=== PATIENT | female | born 1990 | race American Indian/Alaskan Native ===

== ENCOUNTER 2018-09-23 12:50 | Inpatient (IN) | payer OTHER ==
[2018-09-23 13:57] LABS: Basophils % (Auto) 0.4 % (0.0-1.8); Eosinophils % (Auto) 0.6 % (0.0-4.3); Hematocrit 33.8 % (30.3-42.9); Hemoglobin 10.5 gm/dl (10.1-14.3); Lymphocytes # (Auto) 1.2 K/mm3 (1.2-5.4); Lymphocytes % (Auto) 18.6 % (13.4-35.0); Mean Corpuscular HGB Conc 31 % (30-34); Mean Corpuscular Volume 73 fl (79-97); Monocytes # (Auto) 0.7 K/mm3 (0.0-0.8); Monocytes % (Auto) 11.1 % (0.0-7.3); Platelet Count 215 K/mm3 (140-440); Red Blood Count 4.63 M/mm3 (3.65-5.03); Red Cell Distribution Width 14.1 % (13.2-15.2)
[2018-09-23 14:14] LABS: Uric Acid 2.9 mg/dL (3.5-7.6)
[2018-09-23 14:14] LABS: Bilirubin,Urine NEG (Negative); Blood,Urine MOD (Negative); Color,Urine Yellow (Yellow); Mucus,Urine 2+ /HPF; Protein,Urine <15 mg/dL mg/dL (Negative)
[2018-09-23] MEDS ORDERED: AMPICILLIN/NS 2 GM/100 ML 2 GM/100 ML BAG IV ONE (14:49)
[2018-09-23] MEDS ORDERED: BRETHINE IVP PRN (14:49)
[2018-09-23] MEDS ORDERED: BRETHINE SUB-Q PRN (14:49)
[2018-09-23] MEDS ORDERED: XYLOCAINE 2% INFILTRATI ONE (14:49)
[2018-09-23] MEDS ORDERED: STADOL IV PRN (14:49)
[2018-09-23] MEDS ORDERED: SUBLIMAZE IV PRN (14:49)
[2018-09-23] MEDS ORDERED: ZOFRAN IV PRN ×2 (14:49→17:49)
[2018-09-23] MEDS ORDERED: MINERAL OIL PO PRN (14:49)
[2018-09-23] MEDS ORDERED: PITOCin/NS 20 UNIT/1000ML DRIP 20 UNITS/1,000 ML BAG IV SCH ×2 (15:00→18:00)
[2018-09-23] MEDS ORDERED: LACTATED RINGERS 1,000 ML IV SCH (15:00)
[2018-09-23] MEDS ORDERED: PITOCin/NS 30 UNIT/500ML 30 UNITS/500 ML BAG IV SCH ×2 (15:00)
--- NOTE | 2018-09-23 15:01 | History and Physical Report ---
History of Present Illness Date of examination: 09/23/18 Chief complaint: Labor History of present illness: Pt is a 28yo BF EDC 10/04/18; EGA 38 3/7 weeks presents to L&D complaining of RUC's q 3-4 mins. She received 1 late visit with [facility] [place] at 30 weeks and was supposed to see [facility] for + marijuana ad + cocaine use. records are available and GBS is unknown. Past History Past Medical History: no pertinent history Past Surgical History: no surgical history BUSINESS RECORDS MANAGER History: herpes Family/Genetic History: hypertension Social history: no significant social history, single - Obstetrical History Expected Date of Delivery: 10/04/18 Actual Gestation: 38 Week(s) 3 Day(s) : 6 Medications and Allergies Allergies Allergy/AdvReac Type Severity Reaction Status Date / Time No Known Allergies Allergy Unverified 09/23/18 13:26 Active Meds: Active Medications Ephedrine Sulfate (Ephedrine Sulfate) 10 mg IV Q2M PRN PRN Reason: Hypotension Oxytocin/Sodium Chloride (Pitocin/Ns 20 Unit/1000ml Drip) 20 units in 1,000 mls @ 125 mls/hr IV DIRECT JAZMINE Oxytocin/Sodium Chloride (Pitocin/Ns 30 Unit/500ml) 30 units in 500 mls @ 1 mls/hr IV TITR JAZMINE; Protocol Oxytocin/Sodium Chloride (Pitocin/Ns 30 Unit/500ml) 30 units in 500 mls @ 4 mls/hr IV TITR JAZMINE; Protocol Lactated Ringer's (Lactated Ringers) 1,000 mls @ 125 mls/hr IV DIRECT JAZMINE Lidocaine (Xylocaine 2%) 20 ml INFILTRATI ONCE ONE Stop: 09/23/18 14:50 Mineral Oil (Mineral Oil) 30 ml PO QHS PRN PRN Reason: Constipation Terbutaline Sulfate (Brethine) 0.25 mg SUB-Q ONCE PRN PRN Reason: Hyperstimulation/Hypertonicity Terbutaline Sulfate (Brethine) 0.25 mg IVP ONCE PRN PRN Reason: Hyperstimulation/Hypertonicity Review of Systems All systems: negative - Vital Signs Vital signs: Vital Signs Pulse BP 97 H 130/84 09/23/18 12:53 09/23/18 12:53 Temp Pulse Resp BP Pulse Ox 71 109/73 09/23/18 13:57 09/23/18 13:57 - Physical Exam Breasts: Positive: deferred Cardiovascular: Regular rate Lungs: Positive: Clear to auscultation Abdomen: Positive: normal appearance Genitourinary (Female): Positive: normal external genitalia Uterus: Positive: enlarged Extremities: Positive: normal - Obstetrical FHR: category 1 Uterine Contraction Monitor Mode: External Cervical Dilatation: 5.5 (per nurse) Cervical Effacement Percentage: 60 (per nurse) station: -2 Uterine Contraction Pattern: Regular Uterine Tone Measurement Phase: Contraction Uterine Contraction Intensity: Moderate Results Result Diagrams: 09/23/18 13:00 09/23/18 13:00 Abnormal lab results 09/23/18 09/23/18 09/23/18 Range/Units 13:00 13:00 13:00 MCV 73 L (79-97) fl MCH 23 L (28-32) pg [place] % (Auto) 11.1 H (0.0-7.3) % Creatinine 0.4 L (0.7-1.2) mg/dL Uric Acid 2.9 L (3.5-7.6) mg/dL ALT 6 L (7-56) units/L Lactate Dehydrogenase 229 H (91-180) units/L Urine WBC (Auto) (0.0-6.0) /HPF 09/23/18 Range/Units Unknown MCV (79-97) fl MCH (28-32) pg [place] % (Auto) (0.0-7.3) % Creatinine (0.7-1.2) mg/dL Uric Acid (3.5-7.6) mg/dL ALT (7-56) units/L Lactate Dehydrogenase (91-180) units/L Urine WBC (Auto) 18.0 H (0.0-6.0) /HPF All other labs normal. Assessment and Plan - Patient Problems (1) 38 weeks gestation of Onset Date: 09/23/18 Current Visit: Yes Status: Acute Plan to address problem: A: IUP @ 38 3/7 weeks in labor Unknown GBS Insufficient care P: Admit to L&D for expectant vaginal delivery IV Ampicillin
[2018-09-23 15:48] LABS: Amphetamine Screen,Urine PRESUMPTIVE NEGATIVE; Benzodiazepines Screen,Urine PRESUMPTIVE NEGATIVE; Cocaine Screen,Urine PRESUMPTIVE NEGATIVE; Methadone Screen,Urine PRESUMPTIVE NEGATIVE; Opiate Screen,Urine PRESUMPTIVE NEGATIVE
[2018-09-23 16:04] LABS: Cannabinoid Screen,Urine PRESUMPTIVE POSITIVE
[2018-09-23] MEDS ORDERED: METHERGINE IM ONE ×2 (17:14→17:52)
--- NOTE | 2018-09-23 17:44 | Procedure Note ---
OB Delivery Note - Delivery Date of Delivery: 09/23/18 Surgeon: ALISTAIR GUILLEN Estimated blood loss: 200cc - Vaginal Delivery presentation: vertex Delivery position: OA Intrapartum events: precipitous labor- <3hr Delivery induction: none Delivery augmentation: rupture of membranes Delivery monitor: external FHT, external uterine Route of delivery: Delivery placenta: spontaneous Delivery cord: 3 umbilical vessels Episiotomy: none Delivery laceration: none Anesthesia: none Delivery comments: delivered OA and placed on Mom's chest for [id number] bonding and delayed cord clamping, cut by Dad - Infant A at 1 minute: 8 at 5 minutes: 8 Gender: Female (3208gms)
[2018-09-23] MEDS ORDERED: MILK OF MAGNESIA PO PRN (17:49)
[2018-09-23] MEDS ORDERED: LANSINOH TP PRN (17:49)
[2018-09-23] MEDS ORDERED: NORCO 5/325 PO PRN (17:49)
[2018-09-23] MEDS ORDERED: TUCKS PAD TP PRN (17:49)
[2018-09-23] MEDS ORDERED: DULCOLAX PR PRN (17:49)
[2018-09-23] MEDS ORDERED: PHENERGAN PO PRN (17:49)
[2018-09-23] MEDS ORDERED: PHENERGAN PR PRN (17:49)
[2018-09-23] MEDS ORDERED: BENADRYL PO PRN (17:49)
[2018-09-23] MEDS ORDERED: TYLENOL PO PRN (17:49)
[2018-09-23] MEDS ORDERED: SODIUM CHLORIDE FLUSH SYRINGE 10 ML IV NR (18:00)
[2018-09-23] MEDS ORDERED: AMPICILLIN/NS 1 GM/50 ML 1 GM/50 ML BAG IV SCH (18:51)
[2018-09-23] MEDS: COLACE PO SCH ×2 (21:30→21:39)
[2018-09-23] MEDS: FEOSOL PO SCH (21:30)
[2018-09-23] MEDS: IBUPROFEN PO SCH (21:31)
[2018-09-24] MEDS: IBUPROFEN PO SCH ×4 (00:10→18:38)
[2018-09-24 05:09] LABS: Hematocrit 27.7 % (30.3-42.9); Hemoglobin 8.9 gm/dl (10.1-14.3)
[2018-09-24] MEDS ORDERED: M-M-R II VACCINE SUB-Q ONE (06:00)
[2018-09-24] MEDS ORDERED: BOOSTRIX IM ONE (06:00)
--- NOTE | 2018-09-24 08:49 | Progress Note ---
Assessment and Plan - Patient Problems (1) 38 weeks gestation of Onset Date: 09/23/18 Current Visit: Yes Status: Resolved (2) (normal spontaneous vaginal delivery) Onset Date: 09/24/18 Current Visit: Yes Status: Resolved Plan to address problem: A: S/P - PPD #1 Doing well Asymptomatic anemia - stable P: May go home tomorrow. Subjective - Subjective Date of service: 09/24/18 Principal diagnosis: s/p - PPD #1 Interval history: Pt is feeling well without complaints. Bleeding improved. Patient reports: appetite normal, voiding normally, pain well controlled, flatus, ambulating normally, no dizzy ambulation, no nauseated Diana: doing well, nursing well, bottle feeding Objective - Vital Signs Latest vital signs: Vital Signs Temp Pulse Resp BP BP Pulse Ox 09/24/18 00:58 98.0 F 72 18 140/92 97 09/23/18 21:17 98.7 F 90 20 136/76 99 09/23/18 18:44 98.9 F 85 14 146/87 100 09/23/18 18:29 82 138/84 09/23/18 18:26 97.6 F 77 18 150/88 150/88 09/23/18 13:57 71 109/73 09/23/18 13:23 95 H 142/79 09/23/18 13:14 98.1 F 105 H 20 149/83 09/23/18 13:13 96 H 164/93 09/23/18 13:04 114 H 133/77 09/23/18 12:53 97 H 130/84 Intake and Output 09/23/18 09/24/18 09/24/18 22:59 06:59 14:59 Output Total 200 600 Balance -200 -600 Output: Urine 200 600 Void 200 600 Other: Total, Output Amount 200 500 # Voids Void 1 Estimated Blood Loss 300 - Exam Breasts: Present: deferred Abdomen: Present: normal appearance, soft Uterus: Present: normal, firm, fundal height below umbilicus Extremities: Present: normal - Labs Labs: Abnormal lab results 09/23/18 09/23/18 09/23/18 Range/Units 13:00 13:00 13:00 Hgb (10.1-14.3) gm/dl Hct (30.3-42.9) % MCV 73 L (79-97) fl MCH 23 L (28-32) pg [place] % (Auto) 11.1 H (0.0-7.3) % Creatinine 0.4 L (0.7-1.2) mg/dL Uric Acid 2.9 L (3.5-7.6) mg/dL ALT 6 L (7-56) units/L Lactate Dehydrogenase 229 H (91-180) units/L Urine WBC (Auto) (0.0-6.0) /HPF 09/23/18 09/24/18 Range/Units Unknown 04:57 Hgb 8.9 L (10.1-14.3) gm/dl Hct 27.7 L D (30.3-42.9) % MCV (79-97) fl MCH (28-32) pg [place] % (Auto) (0.0-7.3) % Creatinine (0.7-1.2) mg/dL Uric Acid (3.5-7.6) mg/dL ALT (7-56) units/L Lactate Dehydrogenase (91-180) units/L Urine WBC (Auto) 18.0 H (0.0-6.0) /HPF Laboratory Tests 09/23/18 09/23/18 09/23/18 13:00 13:00 13:00 WBC 6.3 RBC 4.63 Hgb 10.5 Hct 33.8 MCV 73 L MCH 23 L MCHC 31 RDW 14.1 Plt Count 215 Lymph % (Auto) 18.6 [place] % (Auto) 11.1 H Eos % (Auto) 0.6 Baso % (Auto) 0.4 Lymph # 1.2 [place] # 0.7 Eos # 0.0 Baso # 0.0 Seg Neutrophils % 69.3 Seg Neutrophils # 4.4 Creatinine Estimated GFR Uric Acid 2.9 L AST ALT 6 L Lactate Dehydrogenase 229 H Urine Color Urine Turbidity Urine pH Ur Specific [place] Urine Protein Urine Glucose (UA) Urine Ketones Urine Blood Urine Nitrite Urine Bilirubin Urine Urobilinogen Ur Leukocyte Esterase Urine WBC (Auto) Urine RBC (Auto) U Epithel Cells (Auto) Urine Mucus Urine Opiates Screen Urine Methadone Screen Ur Barbiturates Screen Ur Phencyclidine Scrn Ur Amphetamines Screen U Benzodiazepines Scrn Urine Cocaine Screen U Marijuana (THC) Screen Drugs of Abuse Note Blood Type A POSITIVE Antibody Screen Negative 09/23/18 09/23/18 09/23/18 13:00 15:41 Unknown WBC RBC Hgb Hct MCV MCH MCHC RDW Plt Count Lymph % (Auto) [place] % (Auto) Eos % (Auto) Baso % (Auto) Lymph # [place] # Eos # Baso # Seg Neutrophils % Seg Neutrophils # Creatinine 0.4 L Estimated GFR > 60 Uric Acid AST 17 ALT Lactate Dehydrogenase Urine Color Yellow Urine Turbidity Clear Urine pH 7.0 Ur Specific [place] 1.017 Urine Protein <15 mg/dl Urine Glucose (UA) Neg Urine Ketones Neg Urine Blood Mod Urine Nitrite Neg Urine Bilirubin Neg Urine Urobilinogen 4.0 Ur Leukocyte Esterase Sm Urine WBC (Auto) 18.0 H Urine RBC (Auto) 2.0 U Epithel Cells (Auto) 10.0 Urine Mucus 2+ Urine Opiates Screen Presumptive negative Urine Methadone Screen Presumptive negative Ur Barbiturates Screen Presumptive negative Ur Phencyclidine Scrn Presumptive negative Ur Amphetamines Screen Presumptive negative U Benzodiazepines Scrn Presumptive negative Urine Cocaine Screen Presumptive negative U Marijuana (THC) Screen Presumptive positive Drugs of Abuse Note Disclamer Blood Type Antibody Screen 09/24/18 04:57 WBC RBC Hgb 8.9 L Hct 27.7 L D MCV MCH MCHC RDW Plt Count Lymph % (Auto) [place] % (Auto) Eos % (Auto) Baso % (Auto) Lymph # [place] # Eos # Baso # Seg Neutrophils % Seg Neutrophils # Creatinine Estimated GFR Uric Acid AST ALT Lactate Dehydrogenase Urine Color Urine Turbidity Urine pH Ur Specific [place] Urine Protein Urine Glucose (UA) Urine Ketones Urine Blood Urine Nitrite Urine Bilirubin Urine Urobilinogen Ur Leukocyte Esterase Urine WBC (Auto) Urine RBC (Auto) U Epithel Cells (Auto) Urine Mucus Urine Opiates Screen Urine Methadone Screen Ur Barbiturates Screen Ur Phencyclidine Scrn Ur Amphetamines Screen U Benzodiazepines Scrn Urine Cocaine Screen U Marijuana (THC) Screen Drugs of Abuse Note Blood Type Antibody Screen
--- NOTE | 2018-09-24 09:43 | Discharge Summary ---
Providers - Providers Date of Admission: 09/23/18 15:05 Date of discharge: 09/25/18 Attending physician: ALISTAIR GUILLEN Primary care physician: ALISTAIR GUILLEN Hospitalization Reason for admission: active labor, rupture of membranes, IUP at term Delivery: Episiotomy: none Laceration: none Other procedures: none complications: none Discharge diagnosis: IUP at term delivered [place] baby: female Hospital course: Unremarkable Condition at discharge: Good Disposition: DC-01 TO HOME OR SELFCARE - Discharge Diagnoses (1) 38 weeks gestation of Status: Resolved (2) (normal spontaneous vaginal delivery) Status: Resolved Plan - Discharge Medications Prescriptions: Ferrous Sulfate [Feosol 325 MG tab] 325 mg PO BID #60 tablet Ibuprofen [Motrin 600 MG tab] 600 mg PO Q6H #30 tablet Vit-Fe Fumar-FA [ Vitamin] 1 each PO QDAY #30 tablet - Provider Discharge Summary Activity: routine, no sex for 6 weeks, no heavy lifting 4 weeks, no strenuous exercise Diet: routine Instructions: routine Additional instructions: [] Smoking cessation referral if applicable(refer to patient education folder for contact #) [] Refer to [facility]'s [facility] Booklet Call your doctor immediately for: * Fever > 100.5 * Heavy vaginal bleeding ( >1 pad per hour) * Severe persistent headache * Shortness of breath * Reddened, hot, painful area to leg or breast * Drainage or odor from incision. * Keep incision clean and dry at all times and follow doctor's instructions regarding bathing/showering - Follow up plan Follow up: ALISTAIR GUILLEN MD [Primary Care Provider] - 6 Weeks
[2018-09-24] MEDS ORDERED: PRENATAL VITAMIN PO SCH (10:00)
[2018-09-24] MEDS: FEOSOL PO SCH ×2 (11:21→21:54)
[2018-09-24] MEDS: COLACE PO SCH ×2 (11:21→21:55)
[2018-09-25 17:25] VITALS: BP 135/86
== END 2018-09-25 17:30 | disposition home or self-care (01) | DRG 775 ==
LOC: TRG 12:50 → LD 15:05 → OB 18:55
PROVIDERS: ADMIT Obstetrics & Gynecology; ATTEND Obstetrics & Gynecology
PROC: 10E0XZZ Delivery of Products of Conception, External Approach (ICD-10-PCS; principal; 2018-09-23)
DX: O62.3 Precipitate labor (principal); Z37.0 Single live birth; Z3A.38 38 weeks gestation of pregnancy; O90.81 Anemia of the puerperium; D64.9 Anemia, unspecified
CPT/HCPCS: 36415; 80307; 81001; 82565; 83615; 84450; 84460; 84550; 85014; 85018; 85025; 86592; 86850; 86900; 86901; 87086; G0378; J2210; J2590